=== PATIENT | male | born 1960 | race Caucasian/White ===

== ENCOUNTER 2017-11-17 22:37 | Emergency (ER) | payer OTHER ==
[~2017-11-17] VITALS: Ht 177.8 cm; Wt 62.0 kg
[2017-11-17 22:46] VITALS: BP 133/82
[2017-11-17] MEDS ORDERED: ibuprofen tablet 400 MG TABLET PO ONE (23:40)
[2017-11-18] MEDS ORDERED: IBUP-1986 PO (00:04)
== END 2017-11-18 01:22 | disposition home or self-care (01) ==
LOC: ER 22:38
DX: S92.321A Displaced fracture of second metatarsal bone, right foot, initial encounter for closed fracture (principal); S92.331B Displaced fracture of third metatarsal bone, right foot, initial encounter for open fracture; S92.341A Displaced fracture of fourth metatarsal bone, right foot, initial encounter for closed fracture; S92.351A Displaced fracture of fifth metatarsal bone, right foot, initial encounter for closed fracture; V89.0XXA Person injured in unspecified motor-vehicle accident, nontraffic, initial encounter; Y93.89 Activity, other specified; Y92.89 Other specified places as the place of occurrence of the external cause; Y99.8 Other external cause status
CPT/HCPCS: 29515; 73630; 99284